=== PATIENT | female | born 1950 | race African-American/Black ===

== ENCOUNTER 2019-07-26 13:30 | Outpatient (CLI) | payer OTHER | END 2019-07-26 13:35 | disposition home or self-care (01) | LOC: LAB 13:30 | DX: J11.1 Influenza due to unidentified influenza virus with other respiratory manifestations (principal); R10.10 Upper abdominal pain, unspecified; R19.5 Other fecal abnormalities ==

== ENCOUNTER 2019-10-06 08:33 | Emergency (ER) | payer OTHER ==
[~2019-10-06] VITALS: Ht 160 cm; Wt 96.6 kg
== END 2019-10-06 13:07 | disposition home or self-care (01) ==
LOC: ER 08:33
DX: R03.0 Elevated blood-pressure reading, without diagnosis of hypertension (principal); R07.89 Other chest pain